=== PATIENT | female | born 1985 | race Caucasian/White ===

== ENCOUNTER 2019-11-07 14:50 | Emergency (ER) | payer OTHER ==
[~2019-11-07] VITALS: Ht 170.2 cm; Wt 59.0 kg
[2019-11-07 14:59] VITALS: BP 133/90
[2019-11-07] MEDS ORDERED: KETOROLAC TROMETHAMINE INJ 30 MG/ML VIAL ONE (15:13)
[2019-11-07] MEDS ORDERED: KETOROLAC TROMETHAMINE INJ 60 MG/2 ML VIAL IM ONE (15:30)
--- NOTE | 2019-11-07 15:36 | NUR ---
patient verbalized that she is not prior givng toradol
--- NOTE | 2019-11-07 15:37 | NUR ---
Patient discharged to home in stable condition. Written and verbal after care instructions given. Patient verbalizes understanding of instruction.
== END 2019-11-07 15:37 | disposition home or self-care (01) ==
LOC: ER 14:50
DX: M54.2 Cervicalgia (principal)
CPT/HCPCS: 96372; 99283; J1885

== ENCOUNTER 2019-11-09 12:05 | Emergency (ER) | payer OTHER ==
[~2019-11-09] VITALS: Ht 170.2 cm; Wt 62.6 kg
[2019-11-09 12:11] VITALS: BP 147/84
[2019-11-09] MEDS ORDERED: HYDROCODONE/APAP 5/325MG 1 EACH TABLET ONE (12:15)
--- NOTE | 2019-11-09 12:35 | NUR ---
verbal order from Dr. Valderrama to give [place] 5/325 mg 1 tab PO once. Given to patient via PO and tolerated well.
[2019-11-09] MEDS: HYDROCODONE/APAP 5/325MG 1 EACH TABLET PO ONE (12:36)
--- NOTE | 2019-11-09 12:37 | NUR ---
Patient discharged to home in stable condition. Written and verbal after care instructions given. Patient verbalizes understanding of instruction.
== END 2019-11-09 12:37 | disposition home or self-care (01) ==
LOC: ER 12:08
DX: B02.9 Zoster without complications (principal); M54.2 Cervicalgia

== ENCOUNTER 2020-10-21 19:00 | Emergency (ER) | payer OTHER ==
[~2020-10-21] VITALS: Ht 167.6 cm; Wt 54.9 kg
[2020-10-21] MEDS ORDERED: AMOX-430 PO (19:20)
[2020-10-21 19:29] VITALS: BP 134/81
== END 2020-10-21 19:30 | disposition home or self-care (01) ==
LOC: ER 19:00
DX: I89.1 Lymphangitis (principal); Z79.899 Other long term (current) drug therapy

== ENCOUNTER 2021-11-29 03:02 | Emergency (ER) | payer OTHER ==
[~2021-11-29] VITALS: Ht 170.2 cm; Wt 61.2 kg
[~2021-11-29 03:02] MED LIST: AMOX-430 PO
--- NOTE | 2021-11-29 03:15 | NUR ---
BIBHUSBAND. COUGH, SORE THROAT AND "MY LUNGS FEELS PINS AND NEEDLES". TOLERATING R/A AT 97%. PT A/OX4. AMBULATORY WITH STEADY GAIT. CONNECTED PT TO POX AND MONITOR SAFETY MEASURES IN PLACE.
--- NOTE | 2021-11-29 03:50 | NUR ---
WAIVER SIGNED FOR NOT BEING SIGNED BY PATIENT.
--- NOTE | 2021-11-29 03:50 | NUR ---
EKG DONE AT BEDSIDE
--- NOTE | 2021-11-29 03:50 | NUR ---
CXR DONE AT BEDSIDE
--- NOTE | 2021-11-29 03:55 | NUR ---
SEEN BY DR MONTALVO AT BEDSIDE
--- NOTE | 2021-11-29 04:00 | NUR ---
IV CANNULA G20 INSERTED ON RIGHT AC. BLOOD DRAWN AND SENT TO LAB
--- NOTE | 2021-11-29 04:05 | NUR ---
COVID SWAB AND INFLUENZA SWAB SENT TO LAB
--- NOTE | 2021-11-29 04:05 | NUR ---
URINE SPECIMEN SENT TO LAB
[2021-11-29 04:33] LABS: BASOPHILS % (AUTO) 0.6 % (0.0-2.0); EOSINOPHILS % (AUTO) 7.8 % (0.0-6.0); HEMATOCRIT 39 % (33-45); LYMPHOCYTES # (AUTO) 2.1 K/uL (0.8-4.8); LYMPHOCYTES % (AUTO) 29.4 % (20.0-44.0); MEAN CORPUSCULAR HGB CONC 33 g/dl (31.0-36.0); MEAN CORPUSCULAR VOLUME 88 fL (82-100); MONOCYTES % (AUTO) 13.6 % (2.0-12.0); NEUTROPHILS # (AUTO) 3.4 K/uL (1.8-8.9); NEUTROPHILS % (AUTO) 48.6 % (43.0-81.0); PLATELET COUNT (AUTO) 256 K/uL (150-450); RED BLOOD CELL COUNT(AUTO) 4.46 MIL/uL (4.0-5.2); WHITE BLOOD COUNT (AUTO) 7.1 K/uL (4.3-11.0)
[2021-11-29 04:42] LABS: CALCIUM, SERUM 8.7 mg/dL (8.5-10.1); CARBON DIOXIDE 24 mmol/L (21-32); CHLORIDE 108 mmol/L (98-107); CREATININE 1.1 mg/dL (0.6-1.3); GLUCOSE 83 mg/dL (74-106); POTASSIUM 3.7 mmol/L (3.5-5.1); SODIUM SERUM 143 mmol/L (136-145); UREA NITROGEN, BLOOD 15 mg/dL (7-18)
[2021-11-29 04:54] LABS: ALANINE AMINOTRANSFERASE 20 U/L (12-78); ALBUMIN 3.9 g/dL (3.4-5.0); ALKALINE PHOSPHATASE 66 U/L (46-116); ASPARTATE AMINOTRANSFERASE 9 U/L (15-37); BILIRUBIN,DIRECT 0.1 mg/dL (0.0-0.2); BILIRUBIN,TOTAL 0.1 mg/dL (0.2-1.0); TOTAL PROTEIN, SERUM 7.8 g/dL (6.4-8.2)
--- NOTE | 2021-11-29 06:39 | NUR ---
Patient discharged to home in stable condition. Written and verbal after care instructions given. Patient verbalizes understanding of instruction.
--- NOTE | 2021-11-29 06:39 | NUR ---
IV CANNULA REMOVED
[2021-11-29 06:41] VITALS: BP 123/64
== END 2021-11-29 06:41 | disposition home or self-care (01) ==
LOC: ER 03:09
DX: J04.0 Acute laryngitis (principal); J20.9 Acute bronchitis, unspecified; Z20.822 Contact with and (suspected) exposure to COVID-19; R94.31 Abnormal electrocardiogram [ECG] [EKG]; R00.0 Tachycardia, unspecified; Z87.891 Personal history of nicotine dependence; Z86.16 Personal history of COVID-19
CPT/HCPCS: 99285; 71045; 87426; 93005; 87804; 84145; 85025; 80048; 87040 ×2; 83605 ×2; 80076; 85378; 84703; 36415; 84484 ×2; 83880; 80307; C9803